=== PATIENT | male | born 1980 | race Caucasian/White ===

== ENCOUNTER → 2018-08-28 14:30 | Outpatient (CLI) | payer OTHER, SELFPAY ==
--- NOTE | 2018-08-28 14:38 | RAD_ITS ---
STUDY: X-RAY - LUMBOSACRAL SPINE REASON FOR EXAM: Male, 38 years old. Low back pain x6 years TECHNIQUE: 6 view(s) of the lumbosacral spine were obtained. COMPARISON: None FINDINGS: Normal lumbar lordosis. There is no substantial scoliosis. There is normal alignment of the vertebrae. There is mild endplate spondylosis of L1, L2, and L4. There is moderate narrowing of the L4-5 and L5-S1 disc spaces. Normal bilateral sacral ala, sacroiliac joints, and visualized sacrum. Normal visualized soft tissue structures. RAD/L/S Spine Comp/w Bending Views IMPRESSION: Mild endplate spondylosis of L1, L2, and L4. There is moderate narrowing of the L4-5 and L5-S1 disc spaces. There is no evidence of fracture, spondylolysis, or spondylolisthesis. Electronically Signed: Jamey Maldonado MD at 19:35 EDT , Service support ,
== END ==
LOC: MTRAD 14:36
PROVIDERS: Family Provider Internal Medicine; PCP Internal Medicine; Referring Provider Psychiatry & Neurology Neurology; Visit Provider Psychiatry & Neurology Neurology
DX: M54.41 Lumbago with sciatica, right side (principal)
CPT/HCPCS: 72114

== ENCOUNTER → 2018-09-19 09:20 | Outpatient (CLI) | payer OTHER, SELFPAY ==
--- NOTE | 2018-09-19 09:23 | VDLE_ITS ---
Reason For Study: Venous thrombosis RIGHT GSV is normal. CFV is compressible, spontaneous, phasic, competent and demonstrates normal augmentation. FV is compressible, spontaneous, phasic, competent and demonstrates normal augmentation. POP V is compressible, spontaneous, phasic, competent and demonstrates normal augmentation. T/P Trunk is compressible. PTV is compressible. RT PerV is compressible. Procedure Exam performed in department. A preliminary report was called and/or faxed to Lynda. Interpretation Summary Deep veins of the right lower extremity are patent and compressible segmentally. There is no evidence of right lower extremity deep vein thrombosis. Valvular competence appears intact within the proximal deep venous system on the right . The right greater saphenous vein appears patent and compressible segmentally. Ordering Physician: Zeferino Howell Referring Physician: Shira Vega Performed By: Ginger Rosado RVT
== END ==
LOC: CVS 09:21
PROVIDERS: Family Provider Nurse Practitioner; PCP Nurse Practitioner; Referring Provider Psychiatry & Neurology Neurology; Visit Provider Psychiatry & Neurology Neurology
DX: I82.90 Acute embolism and thrombosis of unspecified vein (principal)
CPT/HCPCS: 93971

== ENCOUNTER → 2020-05-21 14:29 | Outpatient (CLI) | payer OTHER, SELFPAY ==
[2020-05-21 18:03] LABS: ALB/GLOB Ratio 0.8 RATIO (0.9-2.4); AST(SGOT) 36 U/L (15-37); Alanine Aminotransfer ALT/SGPT 39 U/L (16-61); Albumin, Serum 3.1 g/dL (3.2-5.0); Alkaline Phosphatase 47 U/L (45-117); Anion Gap 5 (5-15); BUN 18 mg/dL (7-18); BUN/Creat Ratio 16.1 RATIO (10-20); Calcium,Total 8.6 mg/dL (8.5-10.1); Chloride 101 mmol/L (98-107); Cholesterol 140 mg/dL (200); Creatinine, Serum 1.12 mg/dL (0.70-1.30); EST Glomerular Filtration Rate 77 mL/min (>60); Est Glom Filt Rate - Afr Amer 93 mL/min (>60); Globulin 3.7 g/dL (2.2-4.2); Glucose 81 mg/dL (74-106); High Density Lipoprotein 54 mg/dL; PSA,Total - Annual Screen 1.26 ng/mL (0.00-4.00); Potassium 3.8 mmol/L (3.5-5.1); Protein, Total 6.8 g/dL (6.4-8.2); Sodium Level 137 mmol/L (136-145); Triglycerides 34 mg/dL; Very Low Density Lipoprotein 7 mg/dL (5-40)
[2020-05-26 11:52] LABS: Testosterone, % Free 4.19 % (1.50-4.20); Testosterone, Total 1167 ng/dL (264-916)
== END ==
LOC: MFPLAB 14:34
PROVIDERS: PCP Family Medicine; Referring Provider Family Medicine; Visit Provider Family Medicine
DX: R79.89 Other specified abnormal findings of blood chemistry (principal)
CPT/HCPCS: 36415; 80053; 80061; 84153; 84402; 84403; G0103

== ENCOUNTER 2020-09-17 05:26 | Day surgery (SDC) | payer OTHER, SELFPAY ==
[2020-09-14 15:53] VITALS: BMI 26.9
[2020-09-17 05:44] VITALS: BP 117/75; PULSE 70; RESP 16; TEMP 36.3; O2SAT 100; BMI 26.1
--- NOTE | 2020-09-17 05:52 | HP.PCM_ITS ---
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 Kit Zamora MD) Abdominal pain Acid reflux ADD (attention deficit disorder) Anxiety Back problem Blood in stool Dysphagia Surgical History (Updated 09/14/20 @ 15:52 by Isabel Brady) S/P carpal tunnel release S/P nasal surgery S/P trigger finger release Family History (Updated 09/14/20 @ 15:52 by Isabel Brady) Grandfather Cancer prostate Mother Hypertension CAD (coronary artery disease) Social History (Updated 09/14/20 @ 15:53 by Isabel Brady) Smoking Status: Never smoker alcohol intake: current alcohol intake frequency: a few times a week HPI HPI HPI: EMELI LERNER, is a 40 M who presents to the office today for surgical consultation regarding episode of rectal bleeding. First onset approximately 8 days ago. Claims that it looked like V8 poured in the commode. No pain whatsoever. He has had a couple more lesser episodes. He has had intermittent days with none. He does take a significant amount of supplements and medications. He is not aware as to whether any of them are anticoagulants. His testosterone levels are markedly elevated. He does weight lifting and this is significant amount of lifting and straining. He has developed varicosities involving the right lower extremity for which Dr. Francisco Nowak is investigating. The patient denies hepatitis or cirrhosis. He does drink alcohol regularly. Laboratory of April 2020 did not demonstrate abnormal LFTs. He notes a 1 year history of intermittent left testicular pain radiating to the left lower quadrant. He does not complain of any change in stool caliber. No unexpected weight loss. In addition he notes a very long history of reflux disease. Complains that he has daily heartburn and has to take antacids. He has never had any evaluation. ROS General General: Yes fatigue; No weight change, appetite, colon cancer, breast cancer or weakness HEENT HEENT: Yes difficulty swallowing; No eye injury, eye surgery, swollen glands or hoarseness Endo Endocrine: No thyroid disease, diabetes mellitus, thyroid cancer, Hair loss, heat intolerance or cold intolerance Skin Skin: No rash or changing moles Breast Breast: No left breast lump, right breast lump, nipple discharge, breast pain, abnormal mammogram, abnormal US or breast enlargement Musc Musculoskeletal: Yes back problems and arthritis; No rheumatoid arthritis, gout or joint pain Cardio Cardiovascular: No murmur, pacemaker, heart disease, atrial fibrillation, high blood pressure, heart attack, heart stent, palpitations, shortness of breat with exertion or chest pain Psych Psychiatric: Yes depression and anxiety; No hearing voices Resp Respiratory: No shortness of breath, No sleep apnea, No cough, No COPD, No asthma, No emphysema and No wheezing Gastro Gastrointestinal: Yes abdominal pain, Yes nausea or vomiting, No diarrhea, No constipation, Yes blood in stool, Yes acid reflux, No hemorrhoids, No ulcers, No gallbladder problem and No black,tarry stools Chandana Hematologic: No blood thinners, No blood disorders, No bleeding, No anemia and No blood clots Neuro Neurologic: No system reviewed and no additional complaints, except as documented, No as per HPI, No abnormal gait, No abnormal hearing, No abnormal movements, No abnormal speech, No behavioral changes, No burning sensations, No confusion, No convulsions, No disequilibrium, No dizziness, No localized weakness, No frequent falls, No headache(s), No lack of coordination, No loss of vision, No memory loss, No numbness, No other visual disturbances, No radicular pain, No restless legs, No sensory deficit, No syncope, No tingling, No tremor(s), No weakness and No other Exam Const General: cooperative, comfortable and no acute distress Nutritional Appearance: average body habitus Orientation: alert and awake [facility] Head: normal to inspection Eyes General: appearance normal, both eyes and all related structures Chest Other: Muscular chest Resp Effort & Inspection: normal respiratory effort Auscultation: clear to auscultation bilaterally Cardio Rate: regular rate Rhythm: regular rhythm GI Other: Soft, very minimal tenderness palpation left lower quadrant, no mass, no rebound or guarding Other: Testicles are descended. Slightly atrophic left testicle, no mass, no inguinal defects Musc Cervical Spine: normal cervical lordosis Skin General: no rashes or lesions noted Neuro Cognition: normal cognition Extrem Other: Significant right lower extremity medial varicosities. No edema Psych Thought Content: normal COVID (Procedure Consent) Procedure Criteria Procedure Criteria: Yes Elective The surgeon/proceduralist and patient have discussed in detail the risk of exposure to and/or potential harm posed by the COVID-19 virus with having a surgery/procedure at this time versus the risk of delaying the surgery/procedure. It is not possible to know either the risk of delaying the surgery or procedure or chance of getting an infection with perfect accuracy, but a joint decision was made between the patient and the surgeon/proceduralist to proceed at this time with the scheduled surgery/procedure as indicated on the consent form. Assessment and Plan Assessment and Plan (1) Acid reflux: Status: Acute Qualifiers: Esophagitis presence: esophagitis presence not specified Qualified Code(s): K21.9 - Gastro-esophageal reflux disease without esophagitis (2) Blood in stool: Status: Acute (3) Abdominal pain: Status: Acute Qualifiers: Abdominal location: left lower quadrant Qualified Code(s): R10.32 - Left lower quadrant pain Plan Details Additional Comments: 40-year-old gentleman with long-term history of gastroesophageal reflux disease. Sounds like he has had heartburn on a daily basis for which he takes [id number] antacids. He has never had an upper endoscopy. I recommend a esophagogastroduodenoscopy with very careful inspection for potential reflux disease or Leon's or even varicosities. Acute onset of what sounds like rectal bleeding. Laboratory of April 2020 does not suggest hepatitis or cirrhosis at that time. The patient is on multiple supplements for which she is not able to describe the components. He is on significant testosterone supplementation as well as other drugs. I recommend him a colonoscopy with possible biopsy or polypectomy as indicated. Very careful inspection for source of rectal bleeding will be pursued. I did describe to the patient that this could be increased abdominal pressure and internal hemorrhoidal bleeding secondary to straining and essentially varicosities. He is aware that I am not anticipating surgical intervention at the time of his endoscopic evaluation. He has been invited to try to research all of the supplements and medications he takes looking for potential for anticoagulant. He has had an opportunity to ask and have questions answered. We will schedule and expedite his investigation. I appreciate the opportunity of assisting with the surgical care. Copy: Dr. Sedrick Zamora M.D., F.A.C.S. Coding Level of Care Code Off vis,new,level 3 Diagnoses Acid reflux K21.9 Esophagitis presence: esophagitis presence not specified Blood in stool K92.1 Abdominal pain R10.32 Abdominal location: left lower quadrant I have re-examined the patient. There are no clinical changes since date of exam.
[2020-09-17] MEDS: Lactated Ringers 1,000 ML 100 ML IV (05:59)
--- NOTE | 2020-09-17 06:30 | COLBX_PTH ---
PATIENT: EMELI LERNER LOC: EN U#:[id number] AGE/SX: 40/M ROOM: RE09/17/[address]: Dr. Kit Zamora MD : 1980 BED: DIS: 09/17/2020 SPEC #: [id number] RECD: 09/17/20 07:16 STATUS: KYLE ELIZONDO #: [id number] FREDDY: 09/17/20 06:[address]: Kit Zamora DEPT: SURGICAL PATHOLOGY RECD BY: Gabriel Chisholm ENTERED: 09/17/20 11:55 SP TYPE: COLON BX OTHR DR: Dr. Sedrick Thompson MD Tissues: A - Duodenum, NOS B - Gastric mucous membrane C - Esophagus, NOS D - Esophagus, NOS Procedures: Surgery Specimen Level IV HEADER OPERATION: Colonoscopy, EGD ([facility] [place]) PRE-OP DIAGNOSIS: GERD, blood in stool, left lower quadrant pain TISSUE SUBMITTED: A ? Duodenum biopsy, B ? Antrum biopsy, H. pylori, path, C ? Distal esophagus biopsy, D ? Mid esophagus biopsy MICROSCOPIC DIAGNOSIS A. Duodenum, biopsy: A fragment of duodenal mucosa, no pathologic diagnosis. B. Antrum, biopsy: Mild gastritis. See microscopic description and comment. C. Distal esophagus, biopsy: Fragments of squamous mucosa with chronic inflammation and changes consistent with gastroesophageal reflux disease. See comment. D. Mid esophagus, biopsy: A fragment of squamous epithelium with mild chronic inflammation. SJ:beckie 09/20/2020 COMMENT B. The results of immunohistochemistry for Helicobacter pylori will be reported separately ([id number]). C. Increased number of eosinophils (>20% per high power field) consistent with eosinophilic esophagitis. Correlation with clinical, endoscopic findings and appropriate follow up are necessary. MICROSCOPIC DESCRIPTION Slides are reviewed. B. The specimen shows fragments of gastric mucosa with chronic inflammatory cell infiltrates in the lamina propria consisting of lymphocytes and plasma cells, consistent with mild chronic gastritis. GROSS DESCRIPTION A - Received in fixative is one container labeled with the patient's name and designated duodenum biopsy. The specimen consists of one irregular fragment of light garcia soft tissue that measures 0.3 x 0.3 x 0.1 cm. The specimen is totally submitted in one cassette. B - Received in fixative is one container labeled with the patient's name and designated antrum biopsy. The specimen consists of one irregular fragment of light garcia soft tissue that measures 0.7 x 0.2 x 0.1 cm. The specimen is totally submitted in one cassette. C - Received in fixative is one container labeled with the patient's name and designated distal esophagus biopsy. The specimen consists of multiple irregular fragments of light garcia soft tissue that in aggregate measure 1.5 x 0.3 x 0.1 cm. The specimen is totally submitted in one cassette. D - Received in fixative is one container labeled with the patient's name and designated mid esophagus biopsy. The specimen consists of one irregular fragment of light garcia soft tissue that measures 0.4 x 0.2 x 0.1 cm. The specimen is totally submitted in one cassette. / SJ:rg 09/17/20 TC:3 CPT: 70149 x4
--- NOTE | 2020-09-17 06:30 | IMM_PTH ---
PATIENT: EMELI LERNER LOC: EN U#:[id number] AGE/SX: 40/M ROOM: RE09/17/[address]: Dr. Kit Zamora MD : 1980 BED: DIS: 09/17/2020 SPEC #: [id number] RECD: 09/17/20 12:36 STATUS: KYLE REJulius #: [id number] FREDDY: 09/17/20 06:[address]: Kit Zamora DEPT: IMMUNOHISTOCHEMISTRY RECD BY: Karmen Fiore ENTERED: 09/17/20 12:37 SP TYPE: IMMUNO OTHR DR: Dr. Sedrick Thompson MD Tissues: B - Stomach, NOS Procedures: H Pylori (initial) PHYSICIAN [facility] INSTIT[facility] [address] [address] SPECIMEN INFORMATION: Tissue Source: B ? Antrum biopsy Clinical Info: GERD, blood in stool, left lower quadrant pain Specimen Number: [id number] CPT code: 12483 METHODOLOGY: Deparaffinized sections of prefer/formalin-fixed tissue or PAP/DQ stained slides are incubated with monoclonal/polyclonal antibodies/oligonucleotide probes. Localization is made via biotin free immunoperoxidase method. Appropriate controls are performed and reacted as expected. Results on target cell population are indicated in the following table: RESULTS: ANTIBODY / CLONE RESULT Block B H Pylori (polyclonal) negative These tests were developed and their performance characteristics determined by [facility]. They may not have been cleared or approved by the U.S. Food and Drug Administration. The FDA has determined that such clearance or approval is not necessary. INTERPRETATION: B. Antrum biopsy: Negative for Helicobacter pylori organisms. SJ:beckie 09/20/2020
[2020-09-17 07:10] VITALS: BP 117/75; BP 99/69; PULSE 76; RESP 14; TEMP 36.2; O2SAT 97
--- NOTE | 2020-09-17 07:11 | OP.EGD_ITS ---
Patient Name: Freddie Nur Procedure Date: 09/17/2020 6:16 AM Date of : 1980 Age: 40 Procedure: Upper GI endoscopy Indications: Heartburn Providers: Kit Zamora MD Medicines: See the Anesthesia note for documentation of the administered medications Complications: No immediate complications. Procedure: Pre-Anesthesia Assessment: - Prior to the procedure, a History and Physical was performed, and patient medications and allergies were reviewed. The patient's tolerance of previous anesthesia was also reviewed. The risks and benefits of the procedure and the sedation options and risks were discussed with the patient. All questions were answered, and informed consent was obtained. Prior Anticoagulants: The patient has taken no previous anticoagulant or antiplatelet agents. ASA Grade Assessment: II - A patient with mild systemic disease. After reviewing the risks and benefits, the patient was deemed in satisfactory condition to undergo the procedure. After obtaining informed consent, the endoscope was passed under direct vision. Throughout the procedure, the patient's blood pressure, pulse, and oxygen saturations were monitored continuously. The gastroscope was introduced through the mouth, and advanced to the second part of duodenum. The upper GI endoscopy was accomplished without difficulty. The patient tolerated the procedure well. Scope In: 6:42:58 AM Scope Out: 6:51:02 AM Total Procedure Duration Time 0 hours 8 minutes 4 seconds Findings: The Z-line was irregular and was found 41 cm from the incisors. The mid esophagus was normal. Biopsies were taken with a cold forceps for histology. LA Grade B (one or more mucosal breaks greater than 5 mm, not extending between the tops of two mucosal folds) esophagitis with no bleeding was found 37 to 41 cm from the incisors. Biopsies were taken with a cold forceps for histology. Diffuse mildly erythematous mucosa without bleeding was found in the gastric antrum. Biopsies were taken with a cold forceps for histology. Diffuse mildly erythematous mucosa without active bleeding and with no stigmata of bleeding was found in the duodenal bulb. Biopsies were taken with a cold forceps for histology. A small hiatal hernia was present. Impression: - Z-line irregular, 41 cm from the incisors. - Normal mid esophagus. Biopsied. - LA Grade B reflux esophagitis. Biopsied. - Erythematous mucosa in the antrum. Biopsied. - Erythematous duodenopathy. Biopsied. Recommendation: - Discharge patient to home. - Resume previous diet. - Continue present medications. - Use Prilosec (omeprazole) 40 mg PO daily. - Telephone my office for pathology results in 1 week. Procedure Code(s): --- Professional --- 24638, Esophagogastroduodenoscopy, flexible, transoral; with biopsy, single or multiple Diagnosis Code(s): --- Professional --- K22.8, Other specified diseases of esophagus K21.0, Gastro-esophageal reflux disease with esophagitis K31.89, Other diseases of stomach and duodenum R12, Heartburn CPT copyright 2017 [employer]. All rights reserved. The codes documented in this report are preliminary and upon sales activity manager review may be revised to meet current compliance requirements. Kit Zamora MD 09/17/2020 7:11:08 AM This report has been signed electronically. Number of Addenda: 0 Note Initiated On: 09/17/2020 6:16 AM
--- NOTE | 2020-09-17 07:12 | OP.CCLET_ITS ---
09/17/2020 Dimitry Thompson [address] [place] [address] Re : Upper GI endoscopy procedure for [facility] Dear Dr. Thompson This procedure was performed on Thursday, September 17, 2020. My impressions and recommendations are as follows: Impressions : - Z-line irregular, 41 cm from the incisors. - Normal mid esophagus. Biopsied. - LA Grade B reflux esophagitis. Biopsied. - Erythematous mucosa in the antrum. Biopsied. - Erythematous duodenopathy. Biopsied. Recommendations : - Discharge patient to home. - Resume previous diet. - Continue present medications. - Use Prilosec (omeprazole) 40 mg PO daily. - Telephone my office for pathology results in 1 week. My findings are described in the full procedure note, which is enclosed. If I can be of further assistance, please feel free to contact me at Doctor phone number(s): Work: . Sincerely, Kit Zamora MD 09/17/2020 7:11:08 AM This report has been signed electronically.
[2020-09-17 07:15] VITALS: BP 107/72; BP 117/75; PULSE 71; RESP 16; O2SAT 95
--- NOTE | 2020-09-17 07:19 | OP.COLON_ITS ---
Patient Name: Freddie Nur Procedure Date: 09/17/2020 6:52 AM Date of : 1980 Age: 40 Procedure: Colonoscopy Indications: Rectal bleeding Providers: Kit Zamora MD Medicines: See the Anesthesia note for documentation of the administered medications Patient Profile: Last Colonoscopy: none. The patient's first colonoscopy is today. Complications: No immediate complications. Procedure: Pre-Anesthesia Assessment: - Prior to the procedure, a History and Physical was performed, and patient medications and allergies were reviewed. The patient's tolerance of previous anesthesia was also reviewed. The risks and benefits of the procedure and the sedation options and risks were discussed with the patient. All questions were answered, and informed consent was obtained. Prior Anticoagulants: The patient has taken no previous anticoagulant or antiplatelet agents. ASA Grade Assessment: II - A patient with mild systemic disease. After reviewing the risks and benefits, the patient was deemed in satisfactory condition to undergo the procedure. After I obtained informed consent, the scope was passed under direct vision. Throughout the procedure, the patient's blood pressure, pulse, and oxygen saturations were monitored continuously. The colonoscope was introduced through the anus and advanced to the cecum, identified by appendiceal orifice and ileocecal valve. The colonoscopy was performed without difficulty. The patient tolerated the procedure well. The quality of the bowel preparation was good. The ileocecal valve and the appendiceal orifice were photographed. Scope In: 6:54:07 AM Scope Withdrawal Time 0 hours 6 minutes 55 seconds Scope Out: 7:05:23 AM Total Procedure Duration Time 0 hours 11 minutes 16 seconds Findings: The digital rectal exam findings include non-thrombosed external hemorrhoids, non-thrombosed internal hemorrhoids and internal hemorrhoids that prolapse with straining, but spontaneously regress to the resting position (Grade II). Pertinent negatives include normal prostate (size, shape, and consistency). The colon (entire examined portion) appeared normal. Impression: - Non-thrombosed external hemorrhoids, non-thrombosed internal hemorrhoids and internal hemorrhoids that prolapse with straining, but spontaneously regress to the resting position (Grade II) found on digital rectal exam. - The entire examined colon is normal. - No specimens collected. I suspect rectal bleeding was secondary to internal hemorrhoids. I recommend high-fiber diet and daily fiber supplementation in the form of generic or Metamucil or Citrucel or FiberCon or Benefiber. There is no active bleeding at this time. No surgical intervention required at this setting. Recommendation: - Discharge patient to home. - Resume previous diet. - Continue present medications. - Repeat colonoscopy at age 50. Procedure Code(s): --- Professional --- 03651, Colonoscopy, flexible; diagnostic, including collection of specimen(s) by brushing or washing, when performed (separate procedure) Diagnosis Code(s): --- Professional --- K64.1, Second degree hemorrhoids K64.4, Residual hemorrhoidal skin tags K62.5, Hemorrhage of anus and rectum CPT copyright 2017 [employer]. All rights reserved. The codes documented in this report are preliminary and upon support services tech review may be revised to meet current compliance requirements. Kit Zamora MD 09/17/2020 7:19:25 AM This report has been signed electronically. Number of Addenda: 0 Note Initiated On: 09/17/2020 6:52 AM
[2020-09-17 07:20] VITALS: BP 104/71; BP 117/75; PULSE 69; RESP 72; O2SAT 99
--- NOTE | 2020-09-17 07:20 | OP.CCLET_ITS ---
09/17/2020 Dimitry Thompson [address] [place] [address] Re : Colonoscopy procedure for [facility] Dear Dr. Thompson This procedure was performed on Thursday, September 17, 2020. My impressions and recommendations are as follows: Impressions : - Non-thrombosed external hemorrhoids, non-thrombosed internal hemorrhoids and internal hemorrhoids that prolapse with straining, but spontaneously regress to the resting position (Grade II) found on digital rectal exam. - The entire examined colon is normal. - No specimens collected. I suspect rectal bleeding was secondary to internal hemorrhoids. I recommend high-fiber diet and daily fiber supplementation in the form of generic or Metamucil or Citrucel or FiberCon or Benefiber. There is no active bleeding at this time. No surgical intervention required at this setting. Recommendations : - Discharge patient to home. - Resume previous diet. - Continue present medications. - Repeat colonoscopy at age 50. My findings are described in the full procedure note, which is enclosed. If I can be of further assistance, please feel free to contact me at Doctor phone number(s): Work: . Sincerely, Kit Zamora MD 09/17/2020 7:19:25 AM This report has been signed electronically.
[2020-09-17 07:26] VITALS: BP 102/70; BP 117/75; PULSE 64; RESP 16; TEMP 36.2; O2SAT 97
[2020-09-17 07:50] VITALS: BP 117/75
== END 2020-09-17 07:55 ==
LOC: EN 05:27 → AC 05:28
PROVIDERS: PCP Family Medicine; Referring Provider Family Medicine; Visit Provider Surgery
PROC: 0DJD8ZZ Inspection of Lower Intestinal Tract, Via Natural or Artificial Opening Endoscopic (ICD-10-PCS; CPT 45378; principal; 2020-09-17 06:25)
DX: K29.70 Gastritis, unspecified, without bleeding (principal); K21.00 Gastro-esophageal reflux disease with esophagitis, without bleeding; K44.9 Diaphragmatic hernia without obstruction or gangrene; K31.89 Other diseases of stomach and duodenum; K64.4 Residual hemorrhoidal skin tags; K64.1 Second degree hemorrhoids; R13.10 Dysphagia, unspecified; M19.90 Unspecified osteoarthritis, unspecified site; F41.9 Anxiety disorder, unspecified; F98.8 Other specified behavioral and emotional disorders with onset usually occurring in childhood and adolescence; Z79.899 Other long term (current) drug therapy
CPT/HCPCS: 43239; 45378; 88305; 88342; J7120; J2405

== ENCOUNTER 2021-04-12 14:54 | Emergency (ER) | payer OTHER, SELFPAY ==
[2021-04-12 14:55] VITALS: BP 124/82; PULSE 88; RESP 15; TEMP 36.1; O2SAT 98; BMI 27.8
--- NOTE | 2021-04-12 15:13 | RAD_ITS ---
STUDY: X-RAY - LEFT RADIUS AND ULNA REASON FOR EXAM: Male, 41 years old. Infection TECHNIQUE: 2 view(s) of the forearm. COMPARISON: None. FINDINGS: Soft tissue swelling. Normal visualized radius. Normal visualized ulna. RAD/Forearm 2 Views IMPRESSION: Soft tissue swelling. Electronically Signed: Misha Willard MD at 15:28 EST ,
--- NOTE | 2021-04-12 15:58 | EDS_ITS ---
HPI History of Present Illness HPI Narrative: Patient presents with left wrist and forearm pain that has been getting worse over the past week. Patient states it is gradually gotten worse. Patient does not remember any specific trauma or injury. Patient describes the pain as sharp. Patient states it is worse whenever he tries to lift anything. Patient admits to some numbness and tingling in his thumb and index finger. Patient denies any other paresthesias or weakness. Patient states he went to the urgent care today where they felt like he had some crepitus in his forearm along his extensor tendons and referred him to the emergency department. Chief Complaint: Upper Extremity Injury Informant: patient Onset/Context/Timing Onset: Weeks (1) Context: Gradual Onset Timing: Continuous Quality of Pain: Sharp Worsened by: Lifting Relieved by: Nothing Associated Symptoms Associated Symptoms: Positive for Parasthesia; Negative for Weakness and Loss of Funtion [facility] Medical History Abdominal pain Acid reflux ADD (attention deficit disorder) Alcohol use Alcohol use Anxiety Arthritis Back problem Blood in stool Difficulty chewing Dysphagia Gastric reflux Marijuana use Migraine headache Restless legs Substance abuse Home Medications dextroamphetamine-amphetamine 30 mg tablet 30 mg PO DAILY 09/14/20 [History Last Taken Unknown] escitalopram oxalate 10 mg tablet 10 mg PO DAILY 09/14/20 [History Last Taken Unknown] testosterone cypionate 100 mg/mL intramuscular oil 100 mg IM Q2W 09/14/20 [History Last Taken Unknown] zolpidem 10 mg tablet 10 mg PO QHS PRN 09/14/20 [History Last Taken Unknown] omeprazole 40 mg capsule,delayed release 40 mg PO DAILY #60 cap 09/17/20 [Rx Last Taken Unknown] ibuprofen 600 mg PO Q6H PRN PRN #20 tablet 04/12/21 [Rx Last Taken Unknown] Allergy/AdvReac Type Severity Reaction Status Date / Time No Known Allergies Allergy Unverified 09/17/20 05:43 Family History (Updated 09/14/20 @ 15:52 by Isabel Brady) Grandfather Cancer prostate Mother Hypertension CAD (coronary artery disease) Surgical History S/P carpal tunnel release S/P nasal surgery S/P trigger finger release Social History Smoking Status: Current some day smoker tobacco type: smokeless tobacco alcohol intake: current alcohol intake frequency: a few times a week ROS ROS ED Constitutional Constitutional ED: Denies chills or fever(s) Eyes Eyes: Denies blurry vision or change in vision ENT ENT ED: Denies rhinorrhea or sore throat Cardiovascular Cardiovascular: Denies chest pain or palpitations Respiratory/Chest Respiratory/Chest: Denies cough or dyspnea Gastrointestinal Gastrointestinal: Denies nausea or vomiting Genitourinary Genitourinary ED: Denies dysuria or hematuria Musculoskeletal Musculoskeletal: Reports back pain; Denies neck pain Integumentary Denies abscess or rash Neurologic Neurologic: Reports headache(s); Denies weakness Allergic/Immunologic Allergic/Immunologic ED: Denies mouth swelling or urticaria EXAM Physical Exam Const Vital Signs: 04/12/21 14:55 Temperature 97.0 F L Temperature Source Temporal Pulse Rate 88 Respiratory Rate 15 Blood Pressure 124/82 H Blood Pressure Mean 96 Pulse Ox 98 Oxygen Delivery Method Room Air Positive well nourished and well developed General Appearance ED: well developed and NAD HEENT normocephalic Neck full ROM and supple Extremity Extremity Narrative: There is tenderness along the radial aspect of the left distal forearm and wrist. There is some mild edema. There is no ecchymosis. There is no bony crepitance or step-off. Range of motion was limited in all motions of the left wrist secondary to pain. There is a positive Luz Maria's test. Radial pulses are equal bilateral. Sensation was intact to light touch in the radial, median, and ulnar areas. Strength is 5/5 in the radial, median, and ulnar areas. Neuro oriented x3, CN's II-XII intact bilaterally, moves all extremities, no focal motor deficits and no sensory deficits noted Sensorium / Orientation: alert Psych mental status grossly normal MDM MDM MDM Narrative Medical decision making narrative: X-rays of the left forearm were obtained. There are 2 views. On my interpretation, there is no acute fracture. There is no dislocation. There is some mild soft tissue swelling. Radiologist also interpreted the x-rays and agrees. Patient was advised that this is most likely a tenosynovitis of the extensor tendons of the thumb. Patient will be given a thumb spica splint. Patient was given a prescription for ibuprofen. Patient was instructed to follow-up with his primary care physician in 5 to 7 days. Patient understood and was agreeable with the plan. All questions were answered. Radiography Diagnostic Testing: Clinical Impression(s) from Imaging Studies Forearm X-Ray 04/12/21 15:13 IMPRESSION: Soft tissue swelling. Electronically Signed: Misha Willard MD at 15:28 EST , Discharge Plan Triage Chief Complaint: Upper Extremity Injury ED Provider: Getachew Rey Dx/Rx/DC Orders Clinical Impression: De Quervain's tenosynovitis, left Instructions: ED De Quervain Tenosynovitis Prescriptions: New ibuprofen 600 MG tablet 600 mg PO Q6H PRN PRN (Reason: pain) Qty: 20 RF: 0 No Action dextroamphetamine-amphetamine 30 mg tablet 30 mg PO DAILY RF: 0 escitalopram oxalate 10 mg tablet 10 mg PO DAILY RF: 0 zolpidem 10 mg tablet 10 mg PO QHS PRN (Reason: Sleep) RF: 0 testosterone cypionate [Depo-Testosterone] 100 mg/mL oil 100 mg IM Q2W RF: 0 omeprazole 40 mg capsule,delayed release(DR/EC) 40 mg PO DAILY Qty: 60 RF: 2 Primary Care Provider: Dimitry Thompson Referrals: Dimitry Thompson MD [Primary Care Provider] - 5-7 Days Disposition Disposition: Home, Self Care Discharge Date/Time: 04/12/21 16:48
[2021-04-12 16:35] VITALS: RESP 18
== END 2021-04-12 16:48 | disposition home or self-care (01) ==
LOC: ED 16:15
PROVIDERS: Emergency Provider Emergency Medicine; PCP Family Medicine; Visit Provider Emergency Medicine
DX: M65.4 Radial styloid tenosynovitis [de Quervain] (principal); K21.9 Gastro-esophageal reflux disease without esophagitis; M19.90 Unspecified osteoarthritis, unspecified site; R13.10 Dysphagia, unspecified; F98.8 Other specified behavioral and emotional disorders with onset usually occurring in childhood and adolescence; F41.9 Anxiety disorder, unspecified; Z79.899 Other long term (current) drug therapy
CPT/HCPCS: 73090; 99283

== ENCOUNTER 2021-09-26 09:30 | Emergency (ER) | payer OTHER, SELFPAY ==
[2021-09-26 09:31] VITALS: BP 128/84; PULSE 95; RESP 14; TEMP 36.2; O2SAT 97; BMI 25.8
--- NOTE | 2021-09-26 09:43 | VDLE_ITS ---
Reason For Study: pain RIGHT GSV is normal. CFV is compressible, spontaneous, phasic, competent and demonstrates normal augmentation. FV is compressible, spontaneous, phasic, competent and demonstrates normal augmentation. POP V is compressible, spontaneous, phasic, competent and demonstrates normal augmentation. T/P Trunk is compressible. PTV is compressible. RT PerV is compressible. Procedure This is a venous duplex using B-mode, color flow and spectral Doppler. Exam performed portable in ED. The exam was abbreviated due to the COVID 19 protocol. The exam was diagnostic. A preliminary report was called and/or faxed to Dr. Andrea. VL/Venous Duplex US, Unilateral Interpretation Summary Deep veins of the right lower extremity are patent and compressible segmentally . There is no evidence of right lower extremity deep vein thrombosis. Valvular competence sanfodr ears intact within the proximal deep venous system on the right . The right great saphenous vein a ppears patent and compressible segmentally. Ordering Physician: Rafa Andrea Performed By: Guicho Bazan RVT
--- NOTE | 2021-09-26 09:54 | EX.ED.DYSGE1 ---
HPI History of Present Illness Chief Complaint: Lower Extremity Injury Informant: patient and parent Narrative Narrative: 41-year-old male presenting to the emergency room with right leg cellulitis. Patient states he has noticed redness and swelling of the leg for approximately 8 days. He notes no fever but does note that he has been sweating at night. He talked to his former doctor in [place] who called him in [facility] and he has been taking that for 2 days. He notes no cuts or injuries to the right leg. He states that he does stand for long periods of time. He has varicose veins that he was has been meaning to get checked out. He notes that its not uncommon for him to have some swelling of the legs but the right leg is significantly more swollen. He is supposed to drive to [place] in a couple days and then go to [place]. No history of diabetes. He denies any symptoms above the knee. [facility] Medical History Abdominal pain Acid reflux ADD (attention deficit disorder) Alcohol use Alcohol use Anxiety Arthritis Back problem Blood in stool Difficulty chewing Dysphagia Gastric reflux Marijuana use Migraine headache Restless legs Substance abuse Home Medications dextroamphetamine-amphetamine 30 mg tablet 30 mg PO DAILY 09/14/20 [History Last Taken Unknown] escitalopram oxalate 10 mg tablet 10 mg PO DAILY 09/14/20 [History Last Taken Unknown] testosterone cypionate 100 mg/mL intramuscular oil (Depo-Testosterone) 100 mg IM Q2W 09/14/20 [History Last Taken Unknown] zolpidem 10 mg tablet 10 mg PO QHS PRN Sleep 09/14/20 [History Last Taken Unknown] omeprazole 40 mg capsule,delayed release 40 mg PO DAILY #60 caps 09/17/20 [Rx Last Taken Unknown] ibuprofen 600 mg tablet 600 mg PO Q6H PRN PRN pain #20 TABLETS 04/12/21 [Rx Last Taken Unknown] cephalexin 500 mg capsule 500 mg PO Q6 #40 CAPSULES 09/26/21 [Rx Last Taken Unknown] hydrocodone-acetaminophen 5-325mg 5mg-325mg 1 tab PO Q6H PRN PRN Pain 3 days #12 TABLETS 09/26/21 [Rx Last Taken Unknown] Allergy/AdvReac Type Severity Reaction Status Date / Time No Known Allergies Allergy Verified 09/26/21 09:33 Family History Grandfather Cancer prostate Mother Hypertension CAD (coronary artery disease) Surgical History S/P carpal tunnel release S/P nasal surgery S/P trigger finger release Social History Smoking Status: Current some day smoker tobacco type: cigarettes and smokeless tobacco alcohol intake: current alcohol intake frequency: a few times a week ROS ROS ED Constitutional Constitutional ED: Reports sweats; Denies chills, fever(s) or weight loss Eyes Eyes: Denies change in vision or diplopia ENT ENT ED: Denies ear pain, rhinorrhea or sore throat Cardiovascular Cardiovascular: Denies chest pain, orthopnea, palpitations or racing heartbeat Respiratory/Chest Respiratory/Chest: Denies cough, dyspnea or orthopnea Gastrointestinal Gastrointestinal: Denies abdominal pain, diarrhea, nausea or vomiting Genitourinary Genitourinary ED: Denies dysuria, hematuria or urinary frequency Musculoskeletal Musculoskeletal: Reports other Details: See HPI ; Denies arthralgias or myalgias Integumentary Reports rash; Denies abscess Neurologic Neurologic: Denies headache(s) or weakness Psychiatric Psychiatric: Denies anxiety, depression, suicidal ideation or suicidal thoughts Endocrine Endocrinology: Denies polydipsia, polyphagia or polyuria Allergic/Immunologic Allergic/Immunologic ED: Denies mouth swelling, tongue swelling or urticaria EXAM Physical Exam Const Vital Signs: 09/26/21 09:31 Temperature 97.2 F L Temperature Source Temporal Pulse Rate 95 Respiratory Rate 14 Blood Pressure 128/84 H Blood Pressure Mean 98 Pulse Ox 97 Oxygen Delivery Method Room Air Positive well nourished and well developed General Appearance ED: well developed HEENT Reports normocephalic, head/scalp atraumatic and moist mucous membranes Eyes PERRL and EOMs intact bilaterally Neck no lymphadenopathy, supple and no JVD Resp normal respiratory effort and clear to auscultation bilaterally Cardio regular rate, regular rhythm and no murmurs GI normal to inspection, nondistended, normoactive bowel sounds and non-tender Palpation: soft Back/Spine no CVA tenderness and normal ROM Extremity Extremity Narrative: Right lower leg demonstrates erythema and increased warmth as well as swelling. From just below the tibial tuberosity into the foot. I do not appreciate any lymphangitic streaking. There is a large varicose vein of the posterior thigh and calf. This does not palpate thrombosis. Patient is neurovascularly intact distally. General Extremety ED: Yes edema General Extremity: edema right lower extremity Neuro oriented x3 and CN's II-XII intact bilaterally Sensorium / Orientation: alert Motor Exam: strength 5/5 throughout Psych mental status grossly normal Mood & Affect: Negative for depressed or tearful Skin no rashes or lesions noted and no wounds MDM MDM MDM Narrative Medical decision making narrative: Patient's white count is 10 with 76% neutrophils. Duplex ultrasound is negative for DVT. Blood cultures were obtained. Patient is afebrile and wanted to add in Keflex to his antibiotics and also some Advance for pain control. Patient was notified of return instructions and when to go to the hospital. He was advised to write the alphabet frequently with his foot when traveling. He was advised to try to keep the leg elevated when able to rest. Lab Data Attestation: I reviewed the patient's lab results. Labs: Laboratory Results - last 24 hr 09/26/21 10:08 WBC 10.0 RBC 5.51 Hgb 16.3 Hct 49.5 MCV 89.8 MCH 29.6 MCHC 32.9 RDW Std Deviation 45.6 H RDW Coeff of Amira 13.8 Plt Count 290 MPV 9.0 Immature Gran % (Auto) 0.400 Neut % (Auto) 75.9 H Lymph % (Auto) 11.5 L Crowley % (Auto) 9.9 Eos % (Auto) 2.0 Baso % (Auto) 0.3 Absolute Neuts (auto) 7.6 Absolute Lymphs (auto) 1.15 Nucleated RBC % 0 Discharge Plan Triage Chief Complaint: Lower Extremity Injury ED Provider: Rafa Andrea Dx/Rx/DC Orders Clinical Impression: Cellulitis of leg, right, Acute pain of right lower extremity Instructions: ED Cellulitis Prescriptions: New hydrocodone-acetaminophen [hydrocodone-acetaminophen] 5-325 mg tablet 1 tab PO Q6H PRN PRN (Reason: Pain) 3 Days Qty: 12 0RF cephalexin [cephalexin] 500 mg capsule 500 mg PO Q6 Qty: 40 0RF No Action dextroamphetamine-amphetamine 30 mg tablet 30 mg PO DAILY Label Comments: TAKE 1 TABLET BY MOUTH TWICE A DAY escitalopram oxalate 10 mg tablet 10 mg PO DAILY Label Comments: TAKE 1 TABLET BY MOUTH EVERY DAY zolpidem 10 mg tablet 10 mg PO QHS PRN (Reason: Sleep) Label Comments: TAKE ONE TABLET BY MOUTH EVERY NIGHT NEEDED SLEEP testosterone cypionate [Depo-Testosterone] 100 mg/mL oil 100 mg IM Q2W ibuprofen 600 MG tablet 600 mg PO Q6H PRN PRN (Reason: pain) Qty: 20 0RF omeprazole 40 mg capsule,delayed release(DR/EC) 40 mg PO DAILY Qty: 60 2RF Primary Care Provider: Dimitry Thompson Referrals: Dimitry Thompson MD [Primary Care Provider] - 3-5 Days if not improving Disposition Disposition: Home, Self Care
[2021-09-26 10:19] LABS: Absolute Lymphocyte Count 1.15 X10^3/uL (0.83-4.51); Absolute Neutrophil Count 7.6 X10^3/uL (2.0-7.7); Basophil# 0.03 X10^3/uL; Basophil% 0.3 % (0-1); Hematocrit 49.5 % (40-54); Hemoglobin 16.3 g/dL (13.0-16.5); Lymphocyte # 1.15 X10^3/ul (0.83-4.51); Lymphocyte % 11.5 % (19-41); Mean Corp Hgb Conc 32.9 g/dL (32-36); Mean Corpuscular Hgb 29.6 pg (27.0-32.0); Mean Corpuscular Volume 89.8 fL (80-94); Monocyte# 0.99 X10^3/uL; Monocyte% 9.9 % (0-10); NRBC Flagged by Analyzer 0 % (0-5); Neutrophil # 7.55 X10^3/uL (2.7-7.7); Neutrophil % 75.9 % (47-70); Platelet Count 290 K/mm3 (150-450); RBC Distribution Width CV 13.8 % (11.6-14.6); RBC Distribution Width SD 45.6 fl (35.1-43.9); Red Blood Count 5.51 M/mm3 (4.6-6.2)
== END 2021-09-26 11:30 | disposition home or self-care (01) ==
PROVIDERS: Emergency Provider Emergency Medicine; PCP Family Medicine; Visit Provider Emergency Medicine
DX: L03.115 Cellulitis of right lower limb (principal); I83.91 Asymptomatic varicose veins of right lower extremity; M79.604 Pain in right leg; G25.81 Restless legs syndrome; K21.9 Gastro-esophageal reflux disease without esophagitis; F98.8 Other specified behavioral and emotional disorders with onset usually occurring in childhood and adolescence; F17.210 Nicotine dependence, cigarettes, uncomplicated; Z79.899 Other long term (current) drug therapy
CPT/HCPCS: 36415; 85025; 87040; 93971; 99283; A4216

== ENCOUNTER → 2021-10-27 | Outpatient (CLI) | payer OTHER, SELFPAY ==
--- NOTE | 2021-10-27 14:17 | VDLE_ITS ---
Reason For Study: chronic venous insufficiency, VV w/inflamation RIGHT LEFT CFV is compressible, spontaneous, phasic, CFV is compressible, spontaneous, phasic, competent and demonstrates normal competent, and demonstrates normal augmentation. augmentation. FV is compressible, spontaneous, phasic, FV is compressible, spontaneous, phasic, competent and demonstrates normal competent and demonstrates normal augmentation. augmentation. POP V is compressible, spontaneous, phasic, POP V is compressible, spontaneous, phasic, competent and demonstrates normal competent and demonstrates normal augmentation. augmentation. T/P Trunk is compressible. T/P Trunk is compressible. PTV is compressible. PTV is compressible. RT PerV is compressible. LT PerV is compressible. SFJ is competent and measures 0.59 x 0.77 cm. SFJ is competent and measures 0.65 x 0.54 cm. GSV proximal thigh measures 0.59 x 0.81 cm. GSV proximal thigh measures 0.54 x 0.42 cm. GSV at knee measures 0.49 x 0.36 cm. GSV at knee measures 0.39 x 0.37 cm. GSV INCOMPETENT throughout for greater than GSV is competent throughout. 0.5 seconds. SSV proximal calf is competent and measures SSV proximal calf is competent and measures 0.27 x 0.26 cm. 0.27 x 0.22 cm. Procedure Exam performed in department. VL/Venous Duplex US - Chandra Extrem Interpretation Summary Deep veins of the lower extremities are bilaterally patent and compressible seg mentally. There is no evidence of deep vein thrombosis on either side. Valvular competence appears in tact within the proximal deep venous systems bilaterally. The great saphenous veins appear bila terally patent and compressible segmentally. Sapheno-femoral junctions are bilaterally competent . The right great saphenous vein appears segmentally incompetent. The left great saphenous vein a ppears segmentally competent. Small saphenous veins are patent and competent bilaterally. Ordering Physician: Francisco Nowak Referring Physician: Rico Thompson Performed By: Hailey Dee, ROSALIND, RVT
== END | disposition home or self-care (01) ==
PROVIDERS: PCP Family Medicine; Referring Provider Surgery; Visit Provider Surgery
DX: I83.10 Varicose veins of unspecified lower extremity with inflammation (principal)
CPT/HCPCS: 93970